=== PATIENT | male | born 1970 | race Hispanic/Latino ===

== ENCOUNTER 2021-07-07 11:27 | Emergency (ER) | payer BC, OTHER ==
[~2021-07-07] VITALS: Ht 185.4 cm; Wt 128.4 kg
[2021-07-07 11:37] VITALS: BP 108/69
[2021-07-07] MEDS ORDERED: KETOROLAC 60 MG VIAL (30MG/ML) IM ONE (12:00)
[2021-07-07] MEDS ORDERED: DIAZEPAM 5 MG TABLET PO ONE (12:00)
[2021-07-07] MEDS ORDERED: KETOROLAC 60 MG VIAL (30MG/ML) ONE (12:03)
[2021-07-07] MEDS ORDERED: DIAZEPAM 5 MG TABLET ONE (12:04)
[2021-07-07] MEDS ORDERED: CYCL10 PO (14:45)
[2021-07-07] MEDS ORDERED: NAPR-1180 PO (14:45)
== END 2021-07-07 15:00 | disposition home or self-care (01) ==
LOC: EDH 11:27
DX: M54.41 Lumbago with sciatica, right side (principal); E78.00 Pure hypercholesterolemia, unspecified; E66.9 Obesity, unspecified; I10 Essential (primary) hypertension; Z79.1 Long term (current) use of non-steroidal anti-inflammatories (NSAID)
CPT/HCPCS: 72131; 96372; 99284; J1885